=== PATIENT | female | born 1990 | race Caucasian/White ===

== ENCOUNTER 2023-04-24 19:37 | Inpatient (IN) | payer SELFPAY ==
[~2023-04-24] VITALS: Ht 167.7 cm; Wt 65.0 kg
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
[2023-04-24] MEDS ORDERED: NS 100 ML (IVPB) BAG IV ONE (20:45)
[2023-04-24] MEDS ORDERED: HOLD METFORMIN - RECEIVED CONTRAST 20 ML VIAL IV SCH (20:45)
[2023-04-24] MEDS ORDERED: IOHEXOL 350 MG/ML 100 ML (OMNIPAQUE 350) VIAL IV ONE (20:45)
--- NOTE | 2023-04-24 20:50 | Diagnostic Imaging Report ---
EXAMINATION: Pelvis radiograph. EXAM DATE: 04/24/2023 8:41 PM. COMPARISON: None available. HISTORY: Pelvic pain. TECHNIQUE: 1 view. FINDINGS: There is mild irregularity seen along the left superior pubic ramus near the pubic symphysis. No other acute fracture is seen within the pelvis. The joint spaces are normal. The soft tissues are normal. IMPRESSION: Questionable irregularity along the left superior pubic ramus near the pubic symphysis. This could represent a nondisplaced fracture. This would be better evaluated with CT of the pelvis. Dictated by: Dictated on workstation # [id number]
--- NOTE | 2023-04-24 20:50 | Diagnostic Imaging Report ---
EXAMINATION: Chest, 1 view. HISTORY: Chest pain. COMPARISON: None available. FINDINGS: There is a mildly widened appearance of the upper mediastinum. The heart size is otherwise normal. The lungs are clear without consolidation, pleural effusion, or pneumothorax. The osseous structures are intact. IMPRESSION: 1. Mild widening of the mediastinum which is nonspecific and could be secondary to prominence of the vessels versus lymphadenopathy or other post traumatic etiology. Consider dedicated CT chest for more definitive characterization. 2. No other acute abnormality in the chest. Dictated by: Dictated on workstation # [id number]
[2023-04-24] MEDS ORDERED: LIDOCAINE UROJET 2% GEL 10 ML PKG TOP ONE (21:00)
[2023-04-24] MEDS ORDERED: Tetanus/Diphtheria/Pertussis (Acell) ADULT Vaccine 0.5 ML IM ONE (21:00)
[2023-04-24] MEDS ORDERED: fentaNYL INJECTION 100 MCG/2 ML VIAL IVP ONE (21:00)
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
--- NOTE | 2023-04-24 21:27 | Diagnostic Imaging Report ---
EXAMINATION: Bilateral femur radiographs. EXAM DATE: 04/24/2023 9:17 PM. COMPARISON: None available. HISTORY: Right leg pain. TECHNIQUE: 8 views. FINDINGS: There is no acute fracture, dislocation, or destructive osseous process. The joint spaces are normal. The soft tissues are normal. IMPRESSION: No acute osseous abnormality. Dictated by: Dictated on workstation # [id number]
--- NOTE | 2023-04-24 21:28 | Diagnostic Imaging Report ---
EXAMINATION: Bilateral humerus radiographs. EXAM DATE: 04/24/2023 9:17 PM. COMPARISON: None available. HISTORY: Bilateral arm pain. TECHNIQUE: 4 views. FINDINGS: There is no acute fracture, dislocation, or destructive osseous process within the left or right humerus. There is a mildly displaced fracture of the mid left clavicle. The joint spaces are normal. The soft tissues are normal. IMPRESSION: 1. No acute osseous abnormality of the bilateral humeri. 2. Mildly displaced acute fracture of the mid left clavicle. Dictated by: Dictated on workstation # [id number]
--- NOTE | 2023-04-24 21:28 | Diagnostic Imaging Report ---
EXAMINATION: Left shoulder radiographs. EXAM DATE: 04/24/2023 9:17 PM. COMPARISON: None available. HISTORY: Left shoulder pain. TECHNIQUE: 4 views. FINDINGS: There is an acute, mildly displaced fracture of the mid left clavicle. The glenohumeral joint is intact. The acromioclavicular joint is intact. No dislocation. The joint spaces are normal. The soft tissues are normal. IMPRESSION: Acute, mildly displaced fracture of the mid left clavicle. Dictated by: Dictated on workstation # [id number]
--- NOTE | 2023-04-24 21:29 | Diagnostic Imaging Report ---
EXAMINATION: Bilateral tibia and fibula radiographs. EXAM DATE: 04/24/2023 9:17 PM. COMPARISON: None available. HISTORY: Bilateral lower extremity pain. TECHNIQUE: 4 views. FINDINGS: There is no acute fracture, dislocation, or destructive osseous process. The joint spaces are normal. The soft tissues are normal. IMPRESSION: No acute osseous abnormality. Dictated by: Dictated on workstation # [id number]
[2023-04-24] MEDS ORDERED: LIDOCAINE 1% INJ 20 ML VIAL INJ ONE (22:00)
[2023-04-24 22:03] LABS: HEMATOCRIT 38 % (35-52); HEMOGLOBIN 12.5 g/dL (11.5-16.0); MEAN CORPUSCULAR HEMOGLOBIN 29 pg (25-34); MEAN CORPUSCULAR HGB CONC 33 g/dL (32-36); MEAN CORPUSCULAR VOLUME 89 fL (80-99); PLATELET COUNT 236 10^3/uL (130-400); WHITE BLOOD COUNT 20.7 10^3/uL (4.3-11.0)
[2023-04-24 22:11] LABS: ALBUMIN 3.8 GM/DL (3.2-4.5); CHLORIDE 104 MMOL/L (98-107); POTASSIUM 3.5 MMOL/L (3.6-5.0); SODIUM 137 MMOL/L (135-145)
[2023-04-24 22:12] LABS: CALCIUM 8.2 MG/DL (8.5-10.1)
[2023-04-24 22:13] LABS: AMYLASE 62 U/L (25-125)
[2023-04-24 22:13] LABS: GLUCOSE 106 MG/DL (70-105); TOTAL PROTEIN 6.5 GM/DL (6.4-8.2)
[2023-04-24 22:14] LABS: CARBON DIOXIDE 23 MMOL/L (21-32)
[2023-04-24 22:15] LABS: BILIRUBIN,TOTAL 0.8 MG/DL (0.1-1.0)
[2023-04-24 22:16] LABS: PHOSPHORUS 2.8 MG/DL (2.3-4.7)
[2023-04-24 22:17] LABS: AMORPHOUS SEDIMENT,UR FEW AMOR URATES /LPF; BACTERIA,URINE NEGATIVE /HPF; BILIRUBIN,URINE 1+ (NEGATIVE); CLARITY,URINE CLEAR; COCAINE SCREEN URINE NEGATIVE (NEGATIVE); COLOR,URINE YELLOW; GLUCOSE, URINE (UA) NEGATIVE (NEGATIVE); KETONES,URINE TRACE (NEGATIVE); LEUKOCYTE ESTERASE ,URINE NEGATIVE (NEGATIVE); NITRITE,URINE NEGATIVE (NEGATIVE); PH,URINE 5.5 (5-9); PROTEIN,URINE TRACE (NEGATIVE)
[2023-04-24 22:17] LABS: ALKALINE PHOSPHATASE 69 U/L (40-136); CREATININE SERUM 0.86 MG/DL (0.60-1.30); GFR ESTIMATED 91
[2023-04-24 22:18] LABS: AMPHETAMINE SCREEN, URINE POSITIVE (NEGATIVE); BARBITURATE SCREEN URINE NEGATIVE (NEGATIVE); CANNABINOID SCREEN, URINE POSITIVE (NEGATIVE); METHADONE STAT NEGATIVE (NEGATIVE); OPIATE SCREEN URINE NEGATIVE (NEGATIVE); OXYCODONE STAT NEGATIVE (NEGATIVE); TRICYCLIC ANTIDEPRESSANTS SCRE POSITIVE (NEGATIVE)
[2023-04-24 22:18] LABS: BILIRUBIN,DIRECT 0.2 MG/DL (0.0-0.3); BILIRUBIN,INDIRECT 0.6 MG/DL; BUN/CREATININE RATIO 14
[2023-04-24 22:19] LABS: MAGNESIUM 2.1 MG/DL (1.6-2.4)
[2023-04-24 22:20] LABS: ALANINE AMINOTRANSFERASE 45 U/L (0-55); CREATINE KINASE 729 U/L (29-168)
[2023-04-24 22:21] LABS: SALICYLATE < 5.0 MG/DL (5.0-20.0)
[2023-04-24 22:22] LABS: LIPASE 101 U/L (8-78)
[2023-04-24 22:28] LABS: FIBRIN DEGRADATION PRODUCTS 5.04 UG/ML (0.00-0.49)
[2023-04-24 22:44] LABS: ACETAMINOPHEN < 10 UG/ML (10-30); CREATINE KINASE MB 14.5 NG/ML (<6.6)
[2023-04-24] MEDS ORDERED: ceFAZolin 1,000 MG VIAL IV ONE (22:45)
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
[2023-04-25] MEDS ORDERED: ONDANSETRON INJECTION 4 MG/2 ML (SDV) IV PRN (00:15)
[2023-04-25] MEDS ORDERED: D5 1/2NS + KCL 20 MEQ/L 1000ML 1,000 ML IV SCH (00:15)
[2023-04-25 00:24] VITALS: BP 124/92
[2023-04-25] MEDS ORDERED: RT-ALBUTEROL SULF 2.5 MG/3 ML PRE-MIX VIAL INH PRN (00:30)
[2023-04-25] MEDS: fentaNYL INJECTION 100 MCG/2 ML VIAL IV PRN ×3 (01:17→09:28)
[2023-04-25] MEDS ORDERED: fentaNYL INJECTION 100 MCG/2 ML VIAL IVP ONE (03:00)
[2023-04-25 03:47] LABS: BASOPHILS % (AUTO) 0 % (0-10); EOSINOPHILS % (AUTO) 0 % (0-10); HEMATOCRIT 38 % (35-52); HEMOGLOBIN 12.4 g/dL (11.5-16.0); LYMPHOCYTES # (AUTO) 1.4 10^3/uL (1.0-4.0); LYMPHOCYTES % (AUTO) 11 % (12-44); MEAN CORPUSCULAR HEMOGLOBIN 29 pg (25-34); MEAN CORPUSCULAR HGB CONC 33 g/dL (32-36); MEAN CORPUSCULAR VOLUME 89 fL (80-99); MEAN PLATELET VOLUME 10.3 fL (9.0-12.2); MONOCYTES # (AUTO) 0.8 10^3/uL (0.0-1.0); MONOCYTES % (AUTO) 7 % (0-12); NEUTROPHILS % (AUTO) 81 % (42-75); PLATELET COUNT 209 10^3/uL (130-400); WHITE BLOOD COUNT 12.3 10^3/uL (4.3-11.0)
[2023-04-25 03:55] LABS: ALBUMIN 3.9 GM/DL (3.2-4.5)
[2023-04-25 03:57] LABS: CALCIUM 8.4 MG/DL (8.5-10.1)
[2023-04-25 03:58] LABS: TOTAL PROTEIN 6.7 GM/DL (6.4-8.2)
[2023-04-25 04:01] LABS: PHOSPHORUS 3.5 MG/DL (2.3-4.7)
[2023-04-25 04:02] LABS: CREATININE SERUM 0.77 MG/DL (0.60-1.30)
[2023-04-25] MEDS: ceFAZolin 1,000 MG VIAL IV SCH ×2 (05:38→11:11)
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
--- NOTE | 2023-04-25 14:43 | Discharge Inst-Surgical ---
Discharge Inst-Surgical Depart Medication/Instructions New, Converted or Re-Newed RX: Other (use home meds for pain control) Patient Instructions Follow up Appt: Make appointment for 1 week. [phone] You will also need to see ENT and Ortho Instructions: No lifting greater than 20 pounds. No strenuous activity. May shower in 24 hours, no tub bath or soaking. Use incentive spirometer at home as directed. No Smoking Skin/Wound Care: May remove bandages in am. You need to follow up for suture removal. Symptoms to Report: Appetite Changes, Extremity Discoloration, Numbness/Tingling, Swelling Increased, Bleeding Excessive, Eyesight Changes, Pain Increased, Urine Color Change, Constipation(Persistent), Fever over 101 degree F, Pain/Pressure in chest, Urinating Difficulty, Cough Up/Vomit Blood, Heart Beat Irreg/Pounding, Pain/Pressure in jaw, Cramps in feet or legs, Lightheadedness, Pain/Pressure in shoulder, Diarrhea(Persistent), Memory Changes Suddenly, Questions/Concerns, Weight gain consecutive days, Dizziness/Fainting, Nausea/Vomiting, Shortness of Breath, Weight gain over 2 pounds If questions or concerns contact your physician Or seek help at emergency department. Activity Activity as Tolerated: Yes Activity Instructions: Avoid Stress to Incision Driving Instructions: No Driving/Refer to Dr. Breen Discharge Diet: No Restrictions Diet After 24 Hours: Clear Liquid if Nauseous If Any Problems/Questions/Issu: Contact Your Physician, Go to Emergency Room Skin/Wound Care Infection Signs and Symptoms: Increased Redness, Foul Odor of Wound, Increased Drainage, Skin Itchy or Has a Rash, Increased Swelling, Temperature Above 101 F Bathing Instructions: Shower Stitches/[place]/Dermabond Dis: Care of Stitches ELSY TINSLEY DO Apr 25, 2023 14:43
== END 2023-04-25 16:15 | disposition home or self-care (01) | DRG 185 ==
LOC: ER 19:39 → ICU 23:30
PROVIDERS: ADMIT Surgery; ATTEND Surgery
DX: S22.41XA Multiple fractures of ribs, right side, initial encounter for closed fracture (principal); S42.002A Fracture of unspecified part of left clavicle, initial encounter for closed fracture; S02.2XXA Fracture of nasal bones, initial encounter for closed fracture; S01.21XA Laceration without foreign body of nose, initial encounter; S01.511A Laceration without foreign body of lip, initial encounter; S01.111A Laceration without foreign body of right eyelid and periocular area, initial encounter; F15.10 Other stimulant abuse, uncomplicated; F17.210 Nicotine dependence, cigarettes, uncomplicated; V49.49XA Driver injured in collision with other motor vehicles in traffic accident, initial encounter; Z23 Encounter for immunization
CPT/HCPCS: 12011; 36415; 51702; 70450; 70486; 71045; 71260; 72125; 72128; 72131; 72170; 73030; 74177; 80048; 80053; 80076; 80306; 80320; 80329; 81000; 82150; 82550; 82553; 83605; 83690; 83735; 83874; 84100; 84703; 85025; 85027; 85379; 85384; 85610; 85652; 85730; 86141; 86850; 86900; 86901; 86920; 87081; 90715; 93005; 93041; 94664